=== PATIENT | female | born 1975 | race Caucasian/White ===

== ENCOUNTER → 2016-11-30 | Outpatient (CLI) | payer BC ==
[2016-11-30 19:36] LABS: BASO % 0.5 % (0.0-1.0); EOS # 0.2 K/mm3 (0.0-0.50); EOS % 2.3 % (0.0-3.0); LARGE UNSTAINED CELL # 0.1 K/mm3 (0.0-0.4); LARGE UNSTAINED CELL % 1.9 % (0.0-4.0); LYMPH # 2.6 K/mm3 (1.5-4.5); LYMPH % 32.9 % (24.0-44.0); MEAN CORPUSCULAR HEMOGLOBIN 28.5 pg (27.0-33.0); MEAN CORPUSCULAR HGB CONC 33.5 g/dl (32.0-36.5); MEAN CORPUSCULAR VOLUME 85.1 fl (80.0-96.0); MONO # 0.5 K/mm3 (0.0-0.8); MONO % 6.7 % (0.0-5.0); NEUTROPHILS # 4.1 K/mm3 (1.8-7.7); NEUTROPHILS % 55.7 % (36.0-66.0); PLATELET COUNT, AUTOMATED 287 k/mm3 (150-450); RED CELL DISTRIBUTION WIDTH 13.2 % (11.5-14.5); WHITE BLOOD COUNT 7.4 K/mm3 (4.0-10.0)
[2016-11-30 20:02] LABS: ALBUMIN 3.9 GM/DL (3.2-5.2); ALBUMIN/GLOBULIN RATIO 1.08 (1.00-1.93); ALKALINE PHOSPHATASE 75 U/L (45-117); ALT/SGPT 33 U/L (12-78); ANION GAP 7 MEQ/L (8-16); AST/SGOT 18 U/L (15-37); BILIRUBIN,TOTAL 0.4 MG/DL (0.2-1.0); BLOOD UREA NITROGEN 17 MG/DL (7-18); CALCIUM LEVEL 9.6 MG/DL (8.5-10.1); CARBON DIOXIDE LEVEL 29 MEQ/L (21-32); CHLORIDE LEVEL 104 MEQ/L (98-107); CREATININE FOR GFR 0.55 MG/DL (0.55-1.02); GLOMERULAR FILTRATION RATE > 60.0 (>58); GLUCOSE, FASTING 76 MG/DL (70-105); POTASSIUM SERUM 4.5 MEQ/L (3.5-5.1); SODIUM LEVEL 140 MEQ/L (136-145); TOTAL PROTEIN 7.5 GM/DL (6.4-8.2)
== END ==
LOC: M LRY 13:54
PROVIDERS: ATTEND Surgery
DX: Z01.812 Encounter for preprocedural laboratory examination (principal); R10.13 Epigastric pain; I10 Essential (primary) hypertension

== ENCOUNTER → 2017-01-26 | Outpatient (CLI) | payer BC ==
[2017-01-26 21:07] LABS: BASO % 0.7 % (0.0-1.0); EOS # 0.1 K/mm3 (0.0-0.50); EOS % 1.8 % (0.0-3.0); LARGE UNSTAINED CELL # 0.1 K/mm3 (0.0-0.4); LARGE UNSTAINED CELL % 2.5 % (0.0-4.0); LYMPH # 2.3 K/mm3 (1.5-4.5); LYMPH % 36.4 % (24.0-44.0); MEAN CORPUSCULAR HGB CONC 32.3 g/dl (32.0-36.5); MEAN CORPUSCULAR VOLUME 86.9 fl (80.0-96.0); MONO # 0.4 K/mm3 (0.0-0.8); MONO % 6.6 % (0.0-5.0); NEUTROPHILS # 3.1 K/mm3 (1.8-7.7); NEUTROPHILS % 52.1 % (36.0-66.0); PLATELET COUNT, AUTOMATED 226 k/mm3 (150-450); RED CELL DISTRIBUTION WIDTH 14.2 % (11.5-14.5); WHITE BLOOD COUNT 5.9 K/mm3 (4.0-10.0)
[2017-01-26 21:08] LABS: ALBUMIN/GLOBULIN RATIO 1.38 (1.00-1.93); ALKALINE PHOSPHATASE 70 U/L (45-117); ALT/SGPT 49 U/L (12-78); ANION GAP 9 MEQ/L (8-16); AST/SGOT 33 U/L (15-37); BILIRUBIN,TOTAL 0.5 MG/DL (0.2-1.0); BLOOD UREA NITROGEN 13 MG/DL (7-18); CALCIUM LEVEL 9.5 MG/DL (8.5-10.1); CARBON DIOXIDE LEVEL 26 MEQ/L (21-32); CHLORIDE LEVEL 107 MEQ/L (98-107); CREATININE FOR GFR 0.55 MG/DL (0.55-1.02); FERRITIN 71 NG/ML (8-252); GLOMERULAR FILTRATION RATE > 60.0 (>58); GLUCOSE, FASTING 96 MG/DL (70-105); MAGNESIUM LEVEL 2.3 MG/DL (1.8-2.4); PERCENT SATURATION 15.9 % (13.2-37.4); PHOSPHORUS LEVEL 3.5 MG/DL (2.5-4.9); SODIUM LEVEL 142 MEQ/L (136-145); TOTAL IRON BINDING CAPACITY 283 UG/DL (250-450); TOTAL PROTEIN 6.9 GM/DL (6.4-8.2)
[2017-01-27 11:22] LABS: VITAMIN B12 LEVEL 1027 PG/ML (247-911)
[2017-01-29 10:42] LABS: PRETREATED FOLATE FOR RBCFOL 12.8 NG/ML
== END ==
LOC: M LRY 18:51
PROVIDERS: ATTEND Surgery
DX: K91.2 Postsurgical malabsorption, not elsewhere classified (principal); Z98.84 Bariatric surgery status

== ENCOUNTER → 2017-02-05 | Outpatient (REF) | payer BC | LOC: M SFHCLERA 17:41 | PROVIDERS: ATTEND Physician Assistant | DX: R30.0 Dysuria (principal) ==

== ENCOUNTER → 2017-02-17 | Outpatient (REF) | payer BC | LOC: M SFHCLERA 20:37 | PROVIDERS: ATTEND Nurse Practitioner Family | DX: R39.9 Unspecified symptoms and signs involving the genitourinary system (principal) ==

== ENCOUNTER → 2017-05-21 | Outpatient (REF) | payer BC | LOC: M SFHCWAGY 09:43 | PROVIDERS: ATTEND Family Medicine | DX: N95.9 Unspecified menopausal and perimenopausal disorder (principal); Z53.9 Procedure and treatment not carried out, unspecified reason ==

== ENCOUNTER → 2017-05-25 | Outpatient (CLI) | payer BC ==
--- NOTE | 2017-05-25 10:37 | REP ---
PELVIC ULTRASOUND: Real-time sonographic evaluation of the pelvis performed utilized transabdominal and endovaginal technique. Bladder measures 5.4 x 3.7 x 8.3 cm. Uterus measures 6.6 x 2.8 x 4.2 cm. Endometrial thickness is 3 mm. Ovaries are normal in size and echotexture, right ovary measuring 2.2 x 1.2 x 1.4 cm and left ovary 2.3 x 1.0 x 1.4 cm. There is no adnexal mass or free fluid. IMPRESSION: Negative pelvic ultrasound.
== END ==
LOC: M WHC 08:54
PROVIDERS: ATTEND Family Medicine
DX: N94.10 Unspecified dyspareunia (principal)

== ENCOUNTER → 2017-07-02 | Outpatient (REF) | payer BC | LOC: M SFHCWAGY 14:02 | PROVIDERS: ATTEND Family Medicine | DX: Z12.4 Encounter for screening for malignant neoplasm of cervix (principal) ==

== ENCOUNTER → 2017-07-02 | Outpatient (CLI) | payer BC ==
--- NOTE | 2017-07-02 15:15 | REPMRS ---
Patient History The patient states she has not had a clinical breast exam in over a year. No known family history of cancer. Took hormonal contraceptives for 4 years. Digital Woman Screen Mammo: July 02, 2017 - Exam #: [id number] Bilateral CC and MLO view(s) were taken. Technologist: Joselin Banuelos, Technologist Prior study comparison: June 19, 2016, digital woman screen mammo performed at [facility]. 2007, digital bilateral screening mammo, performed at [facility]. FINDINGS: There are scattered fibroglandular densities. There is a moderate amount of residual fibroglandular tissue which is fairly symmetric. There is no interval development of dominant mass, architectural distortion, or clustered microcalcification typical of malignancy. There has been no change in the appearance of the mammogram from the prior studies. ASSESSMENT: BI-RADS/ACR category 1 mammogram. Negative. Recommendation Routine screening mammogram of both breasts in 1 year (for women over age 40). This mammogram was interpreted with the aid of an FDA-approved computer-aided dectection system. Electronically Signed By: Timi Quinn MD 07/02/17 9053
== END ==
LOC: M WHC 13:07
PROVIDERS: ATTEND Family Medicine
DX: Z12.31 Encounter for screening mammogram for malignant neoplasm of breast (principal)

== ENCOUNTER → 2017-11-01 | Outpatient (CLI) | payer BC ==
[2017-11-01 18:37] LABS: ALBUMIN 3.8 GM/DL (3.2-5.2); ALBUMIN/GLOBULIN RATIO 1.15 (1.00-1.93); ALKALINE PHOSPHATASE 82 U/L (45-117); ALT/SGPT 23 U/L (12-78); ANION GAP 6 MEQ/L (8-16); AST/SGOT 14 U/L (7-37); BILIRUBIN,TOTAL 0.2 MG/DL (0.2-1.0); BLOOD UREA NITROGEN 12 MG/DL (7-18); CALCIUM LEVEL 8.9 MG/DL (8.5-10.1); CARBON DIOXIDE LEVEL 27 MEQ/L (21-32); CHLORIDE LEVEL 110 MEQ/L (98-107); CREATININE FOR GFR 0.52 MG/DL (0.55-1.30); ESTIMATED AVERAGE GLUCOSE 97 MG/DL (60-110); FERRITIN 77 NG/ML (8-252); GLOMERULAR FILTRATION RATE > 60.0 (>58); GLUCOSE, FASTING 97 MG/DL (70-100); IRON (FE) 68 UG/DL (50-170); MAGNESIUM LEVEL 2.5 MG/DL (1.8-2.4); PERCENT SATURATION 23.9 % (13.2-45.0); PHOSPHORUS LEVEL 3.7 MG/DL (2.5-4.9); POTASSIUM SERUM 4.4 MEQ/L (3.5-5.1); SODIUM LEVEL 143 MEQ/L (136-145); TOTAL IRON BINDING CAPACITY 284 UG/DL (250-450); TOTAL PROTEIN 7.1 GM/DL (6.4-8.2)
[2017-11-01 18:38] LABS: TOTAL 25(OH) VITAMIN D 26.5 NG/ML (30.0-100.0); VITAMIN B12 LEVEL 1069 PG/ML (247-911)
[2017-11-01 18:39] LABS: FOLATE > 24.0 NG/ML (>5.4)
[2017-11-01 18:40] LABS: BASO % 0.5 % (0.0-1.0); EOS # 0.1 10^3/uL (0.0-0.50); EOS % 1.5 % (0.0-3.0); HEMATOCRIT 38.1 % (36.0-47.0); HEMOGLOBIN 12.6 g/dl (12.0-15.5); IMMATURE GRANULOCYTE % 0.3 % (0-3.0); LYMPH # 2.5 10^3/uL (1.5-4.5); LYMPH % 33.2 % (24.0-44.0); MEAN CORPUSCULAR HGB CONC 33.1 g/dl (32.0-36.5); MEAN CORPUSCULAR VOLUME 87.6 fl (80.0-96.0); MONO # 0.5 10^3/uL (0.0-0.8); MONO % 6.3 % (0.0-5.0); NEUTROPHILS # 4.3 10^3/uL (1.8-7.7); NEUTROPHILS % 58.2 % (36.0-66.0); PLATELET COUNT, AUTOMATED 294 10^3/uL (150-450); RED BLOOD COUNT 4.35 10^6/uL (4.00-5.40); RED CELL DISTRIBUTION WIDTH 12.5 % (11.5-14.5); WHITE BLOOD COUNT 7.5 10^3/uL (4.0-10.0)
== END ==
LOC: M LRY 14:44
DX: K91.2 Postsurgical malabsorption, not elsewhere classified (principal); E55.9 Vitamin D deficiency, unspecified; Z98.84 Bariatric surgery status
CPT/HCPCS: 82746

== ENCOUNTER → 2017-11-15 | Outpatient (REF) | payer BC | LOC: M LAB REF 10:06 | DX: J06.9 Acute upper respiratory infection, unspecified (principal) | CPT/HCPCS: 87081 ==

== ENCOUNTER → 2018-02-25 | Outpatient (REF) | payer BC ==
[2018-02-25 15:20] LABS: CHLAMYDIA DNA AMPLIFICATION NEGATIVE (NEGATIVE); GC DNA AMPLIFICATION NEGATIVE (NEGATIVE)
== END ==
LOC: M SFHCWAGY 12:57
DX: N95.0 Postmenopausal bleeding (principal)
CPT/HCPCS: 87591

== ENCOUNTER → 2018-04-29 | Outpatient (CLI) | payer BC | LOC: M WHC 13:04 | DX: N95.0 Postmenopausal bleeding (principal); N88.8 Other specified noninflammatory disorders of cervix uteri | CPT/HCPCS: 76830 ==

== ENCOUNTER → 2018-04-29 | Outpatient (REF) | payer BC | LOC: M SFHCWAGY 14:24 | DX: N95.0 Postmenopausal bleeding (principal) | CPT/HCPCS: 88304 ==

== ENCOUNTER → 2018-05-14 | Outpatient (REF) | payer BC | LOC: M SFHCLERA 16:43 | DX: J02.9 Acute pharyngitis, unspecified (principal) ==

== ENCOUNTER → 2018-06-26 | Outpatient (CLI) | payer BC ==
[2018-06-26 18:33] LABS: BASO % 0.4 % (0.0-1.0); EOS # 0.1 10^3/uL (0.0-0.50); EOS % 1.8 % (0.0-3.0); HEMATOCRIT 42.3 % (36.0-47.0); HEMOGLOBIN 13.5 g/dl (12.0-15.5); IMMATURE GRANULOCYTE % 0.3 % (0-3.0); LYMPH # 2.1 10^3/uL (1.5-4.5); LYMPH % 32.1 % (24.0-44.0); MEAN CORPUSCULAR HEMOGLOBIN 28.9 pg (27.0-33.0); MEAN CORPUSCULAR HGB CONC 31.9 g/dl (32.0-36.5); MEAN CORPUSCULAR VOLUME 90.6 fl (80.0-96.0); MONO # 0.5 10^3/uL (0.0-0.8); MONO % 7.3 % (0.0-5.0); NEUTROPHILS # 3.9 10^3/uL (1.8-7.7); NEUTROPHILS % 58.1 % (36.0-66.0); PLATELET COUNT, AUTOMATED 311 10^3/uL (150-450); RED BLOOD COUNT 4.67 10^6/uL (4.00-5.40); RED CELL DISTRIBUTION WIDTH 12.9 % (11.5-14.5); WHITE BLOOD COUNT 6.7 10^3/uL (4.0-10.0)
[2018-06-26 18:40] LABS: ALBUMIN/GLOBULIN RATIO 1.25 (1.00-1.93); ALKALINE PHOSPHATASE 75 U/L (45-117); ALT/SGPT 30 U/L (12-78); ANION GAP 7 MEQ/L (8-16); AST/SGOT 14 U/L (7-37); BILIRUBIN,TOTAL 0.4 MG/DL (0.2-1.0); BLOOD UREA NITROGEN 14 MG/DL (7-18); CALCIUM LEVEL 9.2 MG/DL (8.5-10.1); CARBON DIOXIDE LEVEL 30 MEQ/L (21-32); CHLORIDE LEVEL 104 MEQ/L (98-107); CREATININE FOR GFR 0.55 MG/DL (0.55-1.30); FERRITIN 101 NG/ML (8-252); GLOMERULAR FILTRATION RATE > 60.0 (>58); GLUCOSE, FASTING 75 MG/DL (70-100); IRON (FE) 107 UG/DL (50-170); MAGNESIUM LEVEL 2.3 MG/DL (1.8-2.4); PERCENT SATURATION 35.1 % (13.2-45.0); PHOSPHORUS LEVEL 3.5 MG/DL (2.5-4.9); POTASSIUM SERUM 4.2 MEQ/L (3.5-5.1); SODIUM LEVEL 141 MEQ/L (136-145); TOTAL IRON BINDING CAPACITY 305 UG/DL (250-450); TOTAL PROTEIN 7.2 GM/DL (6.4-8.2)
[2018-06-26 18:49] LABS: ESTIMATED AVERAGE GLUCOSE 103 MG/DL (60-110); HEMOGLOBIN A1c 5.2 %
[2018-06-27 10:20] LABS: VITAMIN B12 LEVEL 882 PG/ML (247-911)
[2018-06-27 10:21] LABS: FOLATE 17.3 NG/ML (>5.4)
== END ==
LOC: M LRY 10:28
DX: K91.2 Postsurgical malabsorption, not elsewhere classified (principal); E55.9 Vitamin D deficiency, unspecified; Z98.84 Bariatric surgery status
CPT/HCPCS: 82746

== ENCOUNTER → 2018-08-18 | Outpatient (REF) | payer BC ==
[2018-08-18 12:40] LABS: BACTERIA, URINE AUTO NEGATIVE (NEGATIVE); MUCUS, URINE SMALL (NEGATIVE); RBC, URINE AUTO 0 /HPF (0-3); SQUAMOUS EPITHELIAL CELL UR AU 13 /HPF (0-6); WBC, URINE AUTO 2 /HPF (0-3)
[2018-08-18 14:00] LABS: CHLAMYDIA DNA AMPLIFICATION NEGATIVE (NEGATIVE); GC DNA AMPLIFICATION NEGATIVE (NEGATIVE)
== END ==
LOC: M LAB REF 11:44
PROVIDERS: ATTEND Physician Assistant
DX: N76.0 Acute vaginitis (principal)

== ENCOUNTER → 2019-05-01 | Outpatient (REF) | payer BC | LOC: M SFHCLERA 09:27 | PROVIDERS: ATTEND Physician Assistant | DX: R30.0 Dysuria (principal) ==

== ENCOUNTER 2019-07-13 06:13 | Day surgery (SDC) | payer BC ==
[~2019-07-13] VITALS: Ht 149.9 cm; Wt 71.6 kg
[~2019-07-13 06:13] MED LIST: B-12100010 PO; CITRTAB13 PO; D3 22000 PO; DULO1CAP6 PO; IRON65TA2 PO; LIDOCAINE 1% MDV 20ML VIAL SQ PRN; LR 1,000 ML IV SCH; MULTCAP PO
[2019-07-13] MEDS ORDERED: BUPIVACAINE LIPOSOME/PF 1.3% 20ML VIAL (13.3MG/ML)(EXPAREL)(C9290 PER1MG) As Ordered ONE (07:11)
[2019-07-13] MEDS ORDERED: BUPIVACAINE HCL 0.25% 30 ML VIAL As Ordered ONE (07:11)
[2019-07-13] MEDS ORDERED: LIDOCAINE 2% INJ 100 MG/5 ML SDV (FOR ANES.) As Ordered ONE (07:59)
[2019-07-13] MEDS ORDERED: ROCURONIUM BROMIDE 50 MG/5 ML VIAL As Ordered ONE (07:59)
[2019-07-13] MEDS ORDERED: dexameTHASONE 4 MG/ML 1ML VIAL (J1100) As Ordered ONE (07:59)
[2019-07-13] MEDS ORDERED: ACETAMINOPHEN 1000MG 100ML IV BTL (OFIRMEV) (J0131 PER 10MG) As Ordered ONE (07:59)
[2019-07-13] MEDS ORDERED: fentaNYL 250 MCG/5 ML INJECTION (J3010) As Ordered ONE (07:59)
[2019-07-13] MEDS ORDERED: MIDAZOLAM INJ 2 MG/2 ML VIAL (J2250) As Ordered ONE (07:59)
[2019-07-13] MEDS ORDERED: ONDANSETRON 4MG/2ML VIAL (J2405) As Ordered ONE (07:59)
[2019-07-13] MEDS ORDERED: KETOROLAC 60 MG/2 ML VIAL (J1885) As Ordered ONE (07:59)
[2019-07-13] MEDS ORDERED: PROPOFOL 200 MG/20 ML VIAL As Ordered ONE (07:59)
[2019-07-13] MEDS ORDERED: LACRILUBE (AKWA TEARS) OPHTH OINT 3.5 GM As Ordered ONE (07:59)
[2019-07-13] MEDS ORDERED: GLYCOPYRROLATE INJ 0.2 MG/ML 2 ML VIAL As Ordered ONE (08:07)
[2019-07-13] MEDS ORDERED: SUGAMMADEX SODIUM 500 MG/5 ML VIAL (BRIDION) As Ordered ONE (08:21)
[2019-07-13] MEDS ORDERED: fentaNYL 100 MCG/2 ML INJECTION (J3010) As Ordered ONE (09:40)
[2019-07-13] MEDS ORDERED: PERCOCET 5MG/325MG TAB As Ordered ONE (09:40)
[2019-07-13] MEDS: fentaNYL 100 MCG/2 ML INJECTION (J3010) IV PRN ×2 (09:44→09:49)
[2019-07-13] MEDS ORDERED: NORC1TAB7 PO (09:52)
[2019-07-13] MEDS ORDERED: MORPHINE 10 MG/ML 1ML VIAL (J2270) IV PRN (10:00)
[2019-07-13] MEDS ORDERED: PERCOCET 5MG/325MG TAB PO PRN (10:00)
[2019-07-13] MEDS ORDERED: ONDANSETRON 4MG/2ML VIAL (J2405) IV PRN (10:00)
[2019-07-13] MEDS ORDERED: LR 1,000 ML IV SCH (10:00)
[2019-07-13] MEDS ORDERED: NORCO, ANEXSIA 5/325MG TABLET (HYDROcodone/ACETAMINOPHEN) PO PRN (11:01)
[2019-07-13] MEDS ORDERED: ACETAMINOPHEN TAB 650MG DOSE (2X325MG) PO PRN (11:01)
[2019-07-13 12:15] VITALS: BP 116/64
--- NOTE | 2019-07-13 22:54 | RO ---
DATE OF PROCEDURE: 07/13/2019 PREOPERATIVE DIAGNOSIS: Incisional hernia. POSTOPERATIVE DIAGNOSIS: Incisional hernia. PROCEDURE PERFORMED: Robotic-assisted laparoscopic incisional hernia repair with mesh. The mesh utilized was a Parietex patch, reference code PC09X and lot number [id number]. SURGEON: Alejandro Guerrero MD CLASSIFIER: MEL Pro ANESTHESIA: General: INDICATIONS FOR PROCEDURE: The patient is a 44-year-old woman who has undergone a previous laparoscopic gastric bypass. She has developed a small incisional hernia just to the right of the umbilicus. She is now for laparoscopic robotic-assisted incisional hernia repair. DESCRIPTION OF PROCEDURE: The patient was placed on the operating table in a supine position. She was placed under general endotracheal anesthesia. The patient's abdomen was prepped and draped in a sterile fashion. 0.25% Marcaine was infiltrated at the trocar sites. Mag Collazo assisted with the procedure. She was instrumental in assisting in placement of the ports, changing instruments, preparing the prosthetic mesh which required cutting this to the appropriate size and inserting mesh and sutures, as well as closing the incisions. The initial incision was in the left upper quadrant. A Veress needle was inserted and after a positive hanging drop test, the abdomen was insufflated with carbon dioxide gas. An 8 mm robotic port was placed over a 5 mm scope and advanced through the abdominal wall without difficulty. Initial examination showed a small hernia at the level of the umbilicus. This was perhaps 2 cm maximal diameter. A couple of small scars were noted on the inner aspect of the abdomen at other trocar sites. A second port was placed in the left midabdomen about at the level of the umbilicus and a third port was placed in the left lower quadrant. The patient cart of the [employer] Xi robot was brought into position from the patient's right, and the camera port was docked. The hernia was targeted and the additional ports were then docked. A pair of cauterizing scissors was placed in the right hand port and a Force bipolar in the left. I then moved to the control console to proceed with the robotic portion of the procedure. Inspection of the abdominal wall showed no other significant fascial defects. A peritoneal flap was begun at the left side of the abdomen, perhaps 3 cm from the midline. The peritoneum and preperitoneal fat were peeled away from the abdominal wall using a combination of sharp and cautery dissection. When the fascial defect was encountered, the peritoneum of the hernia was reduced as thoroughly as possible into the abdomen. There were two or three small rents created in the course of freeing this peritoneum. The dissection then extended to the right another 3 cm from the midline. The fascial defect was clearly identified. Again, this was noted to be approximately 2 cm in maximal diameter. This was then sutured closed with a #1-0 Stratafix suture. This was closed transversely. A 9 cm Parietex patch was cut down to a 6 cm diameter patch, and this was inserted into the abdomen and placed into the preperitoneal space over the sutured fascial defect. This was sutured in place circumferentially with a #2-0 V-Loc suture. A second V-Loc was used to complete the circumferential suturing of the patch and then also to close the peritoneal flap. The small defects were also closed. The completed repair appeared excellent with complete reperitonealization of the mesh. The robot was then undocked. The abdomen was deflated and the trocars were removed. Mag Collazo closed the skin incisions and Steri-Strips were applied with light dressings. The patient tolerated the procedure well without apparent complication. She was awakened in the operating room, extubated and moved to the recovery room in stable condition.
== END 2019-07-13 12:15 | disposition home or self-care (01) ==
LOC: M SDC 06:13
PROVIDERS: ATTEND Surgery
DX: K43.2 Incisional hernia without obstruction or gangrene (principal); F41.9 Anxiety disorder, unspecified; F32.9 Major depressive disorder, single episode, unspecified; Z98.84 Bariatric surgery status; Z91.013 Allergy to seafood; Z88.1 Allergy status to other antibiotic agents; Z88.2 Allergy status to sulfonamides; Z79.899 Other long term (current) drug therapy
CPT/HCPCS: 49654; C1781; J0131; J1100; J2250; J2405; J3010

== ENCOUNTER → 2019-09-25 | Outpatient (REF) | payer BC ==
[~2019-09-25] MED LIST changes: -LIDOCAINE 1% MDV 20ML VIAL SQ PRN; -LR 1,000 ML IV SCH; +NORC1TAB7 PO
== END ==
LOC: M SFHCLERA 19:14
PROVIDERS: ATTEND Nurse Practitioner Family
DX: R53.81 Other malaise (principal)

== ENCOUNTER → 2019-10-06 | Outpatient (CLI) | payer BC ==
--- NOTE | 2019-10-06 12:52 | REPMRS ---
Patient History The patient states she has not had a clinical breast exam in over a year. Patient is postmenopausal. No known family history of cancer. Took hormonal contraceptives for 4 years. Digital Woman Screen Mammo: October 06, 2019 - Exam #: [id number] Bilateral CC and MLO view(s) were taken. Technologist: Joselin Banuelos, Technologist Prior study comparison: July 02, 2017, digital woman screen mammo performed at [facility]. June 19, 2016, digital woman screen mammo performed at [facility]. FINDINGS: There are scattered fibroglandular densities. There is a moderate amount of residual fibroglandular tissue which is fairly symmetric. There is no interval development of dominant mass, architectural distortion, or grouped microcalcification typical of malignancy. There has been no change in the appearance of the mammogram from the prior studies. 3-D tomosynthesis shows no additional findings. Assessment: BI-RADS/ACR category 1 mammogram. Negative Mammogram. Recommendation Routine screening mammogram of both breasts in 1 year (for women over age 40). This patient's Lifetime Breast Cancer RIsk is estimated at 9.1 %. This mammogram was interpreted with the aid of an FDA-approved computer-aided dectection system. Electronically Signed By: Timi Quinn MD 10/06/19 0930
== END ==
LOC: M WHC 09:08
PROVIDERS: ATTEND Family Medicine
DX: Z12.31 Encounter for screening mammogram for malignant neoplasm of breast (principal)
CPT/HCPCS: 77063; 77067; G0123

== ENCOUNTER → 2019-10-06 | Outpatient (REF) | payer BC | LOC: M PLALAB 09:50 | PROVIDERS: ATTEND Family Medicine | DX: Z12.4 Encounter for screening for malignant neoplasm of cervix (principal) ==

== ENCOUNTER → 2020-03-27 | Outpatient (REF) | payer BC ==
[~2020-03-27] MED LIST changes: -CITRTAB13 PO; +CITRTAB16 PO
== END ==
LOC: M LAB REF 08:14
PROVIDERS: ATTEND Physician Assistant
DX: R30.0 Dysuria (principal)

== ENCOUNTER → 2020-08-29 | Outpatient (REF) | payer BC | LOC: M SMT 11:06 | PROVIDERS: ATTEND Urology | DX: R39.9 Unspecified symptoms and signs involving the genitourinary system (principal) ==

== ENCOUNTER → 2020-09-02 | Outpatient (CLI) | payer BC ==
--- NOTE | 2020-09-03 09:01 | REP ---
INDICATION: KIDNEY STONES COMPARISON: 03/28/2015 TECHNIQUE: Axial noncontrast images from the lung bases to the pubic symphysis with coronal and sagittal reformations. This CT examination was performed using the following dose reduction techniques: Automated exposure control, adjustment of mA and/or kv according to the patient's size, and use of iterative reconstruction technique. FINDINGS: Lung bases include calcified granuloma in the left lower lobe. Liver, spleen, pancreas, gallbladder, bilateral adrenal glands and kidneys are normal. Incidental splenic calcifications consistent with prior granulomatous disease. No evidence for nephroureterolithiasis. Patient is status post gastric bypass surgery. Small hiatal hernia identified. No bowel obstruction. Small and large bowel is grossly unremarkable. Pelvis demonstrates normal bladder and age-appropriate uterus/adnexa. No ascites. No free air. No adenopathy. No focal inflammatory stranding. Abdominal aorta without aneurysm. Musculoskeletal structures are intact and without acute osseous abnormality. IMPRESSION: 1. Normal appearance to the urinary tract system by noncontrast evaluation. No nephroureterolithiasis. 2. Nonacute findings as described above. <Electronically signed by Dhiraj Nguyễn > 09/03/20 0857
== END ==
LOC: M RAD 16:23
PROVIDERS: ATTEND Urology
DX: K44.9 Diaphragmatic hernia without obstruction or gangrene (principal); Z98.84 Bariatric surgery status; J84.10 Pulmonary fibrosis, unspecified; Z87.442 Personal history of urinary calculi

== ENCOUNTER → 2020-10-15 | Outpatient (CLI) | payer BC ==
--- NOTE | 2020-10-15 10:15 | REPMRS ---
Patient History The patient states she had a clinical breast exam in 09/2020 No known family history of cancer. Took hormonal contraceptives for 4 years. Digital Woman Screen Mammo: October 15, 2020 - Exam #: [id number] Bilateral CC and MLO view(s) were taken. Technologist: Fina Brown, Technologist Prior study comparison: October 06, 2019, bilateral digital woman screen mammo performed at [facility]. July 02, 2017, digital woman screen mammo performed at [facility]. June 19, 2016, digital woman screen mammo performed at [facility]. FINDINGS: There are scattered fibroglandular densities. The Volpara volumetric breast density category is:B. There has been no change in the appearance of the mammogram from the prior studies. There is a mild amount of scattered fibroglandular density which is fairly symmetric. There is no interval development of dominant mass, architectural distortion, or grouped microcalcification suggestive of malignancy. 3-D tomosynthesis shows no additional findings. Assessment: BI-RADS/ACR category 1 mammogram. Negative Mammogram. Recommendation Routine screening mammogram of both breasts in 1 year (for women over age 40). This patient's [facility] Lifetime Breast Cancer Risk is estimated at 0.9 %. This mammogram was interpreted with the aid of an FDA-approved computer-aided dectection system. Electronically Signed By: Timi Quinn MD 10/15/20 1012
== END ==
LOC: M WHC 08:44
PROVIDERS: ATTEND Nurse Practitioner Family
DX: Z12.31 Encounter for screening mammogram for malignant neoplasm of breast (principal); Z92.0 Personal history of contraception

== ENCOUNTER → 2021-12-22 | Outpatient (CLI) | payer BC ==
[~2021-12-22] MED LIST changes: +CITRACAL MAXIMU1 TAB PO; -CITRTAB16 PO
== END ==
LOC: M WUC 13:28
PROVIDERS: ATTEND Physician Assistant Medical
DX: M79.671 Pain in right foot (principal)

== ENCOUNTER → 2022-05-29 | Outpatient (CLI) | payer BC | LOC: M WHC 14:16 | PROVIDERS: ATTEND Nurse Practitioner Family | DX: Z12.31 Encounter for screening mammogram for malignant neoplasm of breast (principal) ==

== ENCOUNTER → 2022-05-29 | Outpatient (REF) | payer BC | LOC: M PLALAB 15:59 | PROVIDERS: ATTEND Nurse Practitioner Family | DX: Z12.4 Encounter for screening for malignant neoplasm of cervix (principal) ==

== ENCOUNTER → 2023-02-11 | Outpatient (CLI) | payer BC | LOC: M WUC 08:54 | PROVIDERS: ATTEND Physician Assistant | DX: R06.02 Shortness of breath (principal); R94.31 Abnormal electrocardiogram [ECG] [EKG] ==

== ENCOUNTER → 2024-03-08 | Outpatient (CLI) | payer BC | LOC: M WHC 08:33 | PROVIDERS: ATTEND Nurse Practitioner Family | DX: Z12.31 Encounter for screening mammogram for malignant neoplasm of breast (principal) ==

== ENCOUNTER → 2024-03-08 | Outpatient (REF) | payer BC | LOC: M SFHCWAGY 12:57 | PROVIDERS: ATTEND Nurse Practitioner Family | DX: Z12.4 Encounter for screening for malignant neoplasm of cervix (principal); Z01.419 Encounter for gynecological examination (general) (routine) without abnormal findings; Z77.9 Other contact with and (suspected) exposures hazardous to health ==

== ENCOUNTER → 2024-05-15 | Outpatient (CLI) | payer BC | LOC: M WUC 15:57 | PROVIDERS: ATTEND Physician Assistant | DX: M76.61 Achilles tendinitis, right leg (principal) ==

== ENCOUNTER → 2025-04-13 | Outpatient (CLI) | payer BC ==
[~2025-04-13] MED LIST changes: +GADOXETATE DISODIUM 2.5 MMOL/10 ML VIAL As Ordered ONE
== END ==
LOC: M RAD 15:19
PROVIDERS: ATTEND Surgery
DX: K83.8 Other specified diseases of biliary tract (principal); K80.20 Calculus of gallbladder without cholecystitis without obstruction; R93.2 Abnormal findings on diagnostic imaging of liver and biliary tract
CPT/HCPCS: 74183; A9581